=== PATIENT | male | born 1930 | race Caucasian/White ===

== ENCOUNTER → 2016-10-03 | Outpatient (CLI) | payer OTHER ==
[2016-10-03 09:43] LABS: Basophils # (auto) 0.1 uL; Basophils % (auto) 0.5 % (0.0-2.0); Eosinophils # (auto) 0.2 uL; Eosinophils % (auto) 2.1 % (0.0-7.0); Hematocrit 40.8 % (41.0-53.0); Hemoglobin 13.1 g/dL (13.5-17.5); Lymphocytes # (auto) 1.8 uL; Lymphocytes % (auto) 15.7 % (10.0-50.0); Mean Corpuscular Hemoglobin 30.7 pg (28.0-32.0); Mean Corpuscular Hgb Conc. 32.2 g/dL (32.0-36.0); Mean Corpuscular Volume 95.4 fL (80.0-100.0); Mean Platelet Volume 10.3 fL (7.4-10.4); Monocytes % (auto) 8.9 % (0.0-12.0); Neutrophils # (auto) 8.4 uL; Neutrophils % (auto) 72.8 % (37.0-80.0); Platelet Count (auto) 207 10^3/uL (140-450); Red Cell Distribution Width 15.7 % (11.6-16.0); Urine Bilirubin Negative (Negative); Urine Blood Negative /uL (Negative); Urine Color Yellow (Yellow); Urine Glucose Normal (Normal); Urine Ketone Negative (Negative); Urine Nitrite Negative (Negative); Urine RBC <1 /hpf (0 - 3); Urine Urobilinogen Normal (Negative); Urine pH 6.5 (5.0-8.0); White Blood Cell 11.6 10^3/uL (4.4-10.8)
[2016-10-03 10:08] LABS: Albumin 3.7 g/dL (3.4-5.0); BUN/Creatinine Ratio 19.1; Bilirubin, Total 0.6 mg/dL (0.2-1.0); Calcium 8.6 mg/dL (8.5-10.1); Total Protein 6.8 g/dL (6.4-8.2)
== END | disposition home or self-care (01) ==
LOC: LAB 08:44
PROVIDERS: ATTEND Family Medicine
DX: I48.91 Unspecified atrial fibrillation (principal); I10 Essential (primary) hypertension; I50.9 Heart failure, unspecified
CPT/HCPCS: 36415; 80053; 80061; 81001; 85025; 85049

== ENCOUNTER 2016-10-27 12:16 | Inpatient (IN) | payer OTHER ==
[~2016-10-27] VITALS: Ht 177.8 cm; Wt 78.6 kg
[2016-10-27] MEDS ORDERED: MORPHINE SULF INJ 2 MG/ML SYRINGE 1ML IV ONE (13:45)
[2016-10-27] MEDS ORDERED: cloNIDine HCL 0.1 MG TAB PO ONE (13:45)
[2016-10-27] MEDS ORDERED: ONDANSETRON HCL 4 MG/2 ML VIAL IV ONE (13:45)
[2016-10-27 13:52] LABS: Basophils # (auto) 0.1 uL; Basophils % (auto) 0.7 % (0.0-2.0); Eosinophils # (auto) 0.4 uL; Eosinophils % (auto) 4.7 % (0.0-7.0); Hematocrit 36.1 % (41.0-53.0); Hemoglobin 11.4 g/dL (13.5-17.5); Lymphocytes # (auto) 1.4 uL; Lymphocytes % (auto) 16.4 % (10.0-50.0); Mean Corpuscular Hemoglobin 30.1 pg (28.0-32.0); Mean Corpuscular Hgb Conc. 31.6 g/dL (32.0-36.0); Mean Corpuscular Volume 95.4 fL (80.0-100.0); Mean Platelet Volume 10.1 fL (7.4-10.4); Monocytes # (auto) 0.9 uL; Monocytes % (auto) 10.9 % (0.0-12.0); Neutrophils # (auto) 5.6 uL; Neutrophils % (auto) 67.3 % (37.0-80.0); Platelet Count (auto) 211 10^3/uL (140-450); Red Cell Distribution Width 15.3 % (11.6-16.0); White Blood Cell 8.3 10^3/uL (4.4-10.8)
[2016-10-27 14:08] LABS: Partial Thromboplastin Time 32.9 sec (22.64-33.71)
[2016-10-27 14:12] LABS: INR 1.29 (0.9-1.15); Prothrombin Time 13.3 sec (9.37-12.3)
[2016-10-27 14:17] LABS: Albumin 3.2 g/dL (3.4-5.0); BUN/Creatinine Ratio 16.6; Calcium 8.6 mg/dL (8.5-10.1)
[2016-10-27 14:23] LABS: Bilirubin, Total 0.6 mg/dL (0.2-1.0); Total Protein 6.3 g/dL (6.4-8.2)
[2016-10-27] MEDS ORDERED: ASPirin 81 mg TAB PO ONE ×2 (15:00→17:00)
[2016-10-27] MEDS ORDERED: cefTRIAXone 1GM/50ML D5W 50 ML IV ONE (15:00)
[2016-10-27 15:15] LABS: B-Type Natriuretic Peptide 858.09 pg/mL (0-100); Temperature: 22.4 C (20.0-25.0)
[2016-10-27] MEDS ORDERED: FUROSEMIDE 40 MG/4 ML VIAL IV ONE (16:00)
[2016-10-27] MEDS ORDERED: SODIUM CHLORIDE 0.9% 1,000 ML IV SCH (16:18)
[2016-10-27] MEDS ORDERED: HYDROcodone-ACET 5/325MG TAB PO PRN (16:30)
[2016-10-27] MEDS ORDERED: TEMAZEPAM 15 MG CAP PO PRN (16:30)
[2016-10-27] MEDS ORDERED: ALBUTEROL SULF 2.5 MG/0.5ML(0.5%) NEB SOLN NEB PRN (16:30)
[2016-10-27] MEDS ORDERED: MORPHINE SULF INJ 2 MG/ML SYRINGE 1ML IV PRN ×2 (16:30)
[2016-10-27] MEDS ORDERED: LACTULOSE 20Gm/30ML SOLN PO PRN (16:30)
[2016-10-27] MEDS ORDERED: NITROGLYCERIN 0.4 MG SL TAB SL PRN (16:30)
[2016-10-27] MEDS ORDERED: ACETAMINOPHEN 500 MG TAB PO PRN (16:30)
[2016-10-27] MEDS ORDERED: PROMETHAZINE HCL 25 MG/ML 1ML IV PRN (16:30)
[2016-10-27] MEDS ORDERED: LORazepam 0.5 MG TAB PO PRN (16:30)
[2016-10-27] MEDS ORDERED: OSELTAMIVIR 75 MG CAP PO ONE (16:30)
[2016-10-27] MEDS ORDERED: AZITHROMYCIN 500MG/D5W 250ML 250 ML IV ONE (17:00)
[2016-10-27] MEDS ORDERED: CARVEDILOL 3.125 MG TAB PO ONE (17:00)
[2016-10-27] MEDS ORDERED: ENALAPRIL MALEATE 2.5 MG TAB PO ONE (17:00)
[2016-10-27] MEDS ORDERED: ENOXAPARIN SOD 30 MG/0.3 ML SYRINGE SC ONE (17:00)
[2016-10-27] MEDS ORDERED: NITROGLYCERIN 0.2MG/HR TOPICAL PATCH TD ONE (17:00)
[2016-10-27] MEDS: ALBUTEROL SULF 2.5 MG/0.5ML(0.5%) NEB SOLN NEB SCH (20:44)
[2016-10-27] MEDS: IPRATROPIUM BROM 0.5 MG/2.5ML INH SOL NEB SCH (20:44)
[2016-10-27] MEDS: FUROSEMIDE 40 MG/4 ML VIAL IV SCH (21:20)
[2016-10-27] MEDS ORDERED: OSELTAMIVIR 75 MG CAP PO SCH (22:00)
[2016-10-27] MEDS: CARVEDILOL 3.125 MG TAB PO SCH (22:06)
[2016-10-27 22:30] VITALS: BP 101/63
[2016-10-27 22:38] VITALS: BP 105/53
[2016-10-28] MEDS ORDERED: DOCU-94 PO (01:18)
[2016-10-28] MEDS ORDERED: METO25TA5 PO (01:30)
[2016-10-28] MEDS ORDERED: SENN8.6C PO (01:30)
[2016-10-28] MEDS ORDERED: PANT40T PO (01:30)
[2016-10-28] MEDS ORDERED: TAMS0.4C36 PO (01:30)
[2016-10-28] MEDS ORDERED: APIX2.5T OR (01:30)
[2016-10-28] MEDS ORDERED: CINA30TA2 PO (01:30)
[2016-10-28] MEDS ORDERED: MAGN400T23 PO (01:30)
[2016-10-28] MEDS ORDERED: FURO40TA4 PO (01:30)
[2016-10-28] MEDS ORDERED: FIN5T GT (01:30)
[2016-10-28] MEDS ORDERED: ATOR20TA PO (01:30)
[2016-10-28] MEDS ORDERED: AMI200T GT (01:30)
[2016-10-28] MEDS: ALBUTEROL SULF 2.5 MG/0.5ML(0.5%) NEB SOLN NEB SCH ×4 (02:27→19:36)
[2016-10-28] MEDS: IPRATROPIUM BROM 0.5 MG/2.5ML INH SOL NEB SCH ×4 (02:27→19:37)
[2016-10-28 04:51] VITALS: BP 123/68
[2016-10-28 06:24] LABS: Basophils # (auto) 0.1 uL; Basophils % (auto) 0.7 % (0.0-2.0); Eosinophils # (auto) 0.5 uL; Eosinophils % (auto) 6.7 % (0.0-7.0); Hematocrit 35.5 % (41.0-53.0); Hemoglobin 11.1 g/dL (13.5-17.5); Lymphocytes # (auto) 1.7 uL; Lymphocytes % (auto) 21.5 % (10.0-50.0); Mean Corpuscular Hemoglobin 30.2 pg (28.0-32.0); Mean Corpuscular Hgb Conc. 31.3 g/dL (32.0-36.0); Mean Corpuscular Volume 96.5 fL (80.0-100.0); Monocytes # (auto) 0.8 uL; Monocytes % (auto) 10.5 % (0.0-12.0); Neutrophils # (auto) 4.7 uL; Neutrophils % (auto) 60.6 % (37.0-80.0); Platelet Count (auto) 212 10^3/uL (140-450); White Blood Cell 7.7 10^3/uL (4.4-10.8)
[2016-10-28] MEDS: FUROSEMIDE 40 MG/4 ML VIAL IV SCH ×2 (06:56→17:43)
[2016-10-28 06:58] LABS: B-Type Natriuretic Peptide 792.71 pg/mL (0-100); Temperature: 21.4 C (20.0-25.0)
[2016-10-28 07:50] LABS: Albumin 2.7 g/dL (3.4-5.0); BUN/Creatinine Ratio 16.7; Bilirubin, Total 0.3 mg/dL (0.2-1.0); Calcium 8.3 mg/dL (8.5-10.1); Potassium 3.8 mmol/L (3.5-5.1); Total Protein 5.6 g/dL (6.4-8.2)
[2016-10-28] MEDS: cefTRIAXone 1GM/50ML D5W 50 ML IV SCH (09:22)
[2016-10-28 09:36] VITALS: BP 114/57
[2016-10-28] MEDS ORDERED: AZITHROMYCIN 500MG/D5W 250ML 250 ML IV SCH (10:00)
[2016-10-28] MEDS ORDERED: ENOXAPARIN SOD 40 MG/0.4 ML SYRINGE SC SCH (10:00)
[2016-10-28] MEDS: ASPirin 81 mg TAB PO SCH (10:21)
[2016-10-28] MEDS: CARVEDILOL 3.125 MG TAB PO SCH ×2 (10:21→21:41)
[2016-10-28] MEDS: ENALAPRIL MALEATE 2.5 MG TAB PO SCH (10:21)
[2016-10-28] MEDS: ENOXAPARIN SOD 30 MG/0.3 ML SYRINGE SC SCH (10:22)
[2016-10-28] MEDS: NITROGLYCERIN 0.2MG/HR TOPICAL PATCH TD SCH (10:33)
[2016-10-28 13:46] VITALS: BP 125/73
[2016-10-28] MEDS ORDERED: DOXYCYCLINE HYC 100MG/250ML 250 ML IV SCH (15:00)
[2016-10-28] MEDS: DOXYCYCLINE HYC 100MG/250ML 250 ML IV SCH ×2 (16:18→21:41)
[2016-10-28 17:17] VITALS: BP 122/78
[2016-10-28] MEDS: BOOST PLUS 8 ounce PO SCH ×2 (18:17→21:41)
[2016-10-28] MEDS ORDERED: PNEUMOCOCCAL VACC POLYS 25 MCG/0.5 ML VIAL IM ONE (19:30)
[2016-10-28] MEDS ORDERED: INFLUENZA QUAD 2016-2017 0.5 ML SYRG IM ONE (19:30)
[2016-10-28 22:03] VITALS: BP 117/62
[2016-10-29] MEDS: ALBUTEROL SULF 2.5 MG/0.5ML(0.5%) NEB SOLN NEB SCH ×4 (00:38→18:59)
[2016-10-29] MEDS: IPRATROPIUM BROM 0.5 MG/2.5ML INH SOL NEB SCH ×4 (00:38→18:59)
[2016-10-29 05:30] VITALS: BP 108/59
[2016-10-29] MEDS: FUROSEMIDE 40 MG/4 ML VIAL IV SCH ×2 (05:40→17:28)
[2016-10-29] MEDS: BOOST PLUS 8 ounce PO SCH ×4 (05:40→21:13)
[2016-10-29 06:11] LABS: Basophils # (auto) 0.1 uL; Basophils % (auto) 0.5 % (0.0-2.0); Eosinophils # (auto) 0.4 uL; Eosinophils % (auto) 4.2 % (0.0-7.0); Hematocrit 34.3 % (41.0-53.0); Hemoglobin 10.9 g/dL (13.5-17.5); Lymphocytes # (auto) 1.6 uL; Lymphocytes % (auto) 15.5 % (10.0-50.0); Mean Corpuscular Hemoglobin 30.4 pg (28.0-32.0); Mean Corpuscular Hgb Conc. 31.7 g/dL (32.0-36.0); Mean Corpuscular Volume 95.9 fL (80.0-100.0); Mean Platelet Volume 10.1 fL (7.4-10.4); Monocytes # (auto) 1.1 uL; Neutrophils % (auto) 68.8 % (37.0-80.0); Platelet Count (auto) 232 10^3/uL (140-450); Red Cell Distribution Width 14.9 % (11.6-16.0); White Blood Cell 10.2 10^3/uL (4.4-10.8)
[2016-10-29 06:23] LABS: Albumin 2.6 g/dL (3.4-5.0); Calcium 8.2 mg/dL (8.5-10.1); Potassium 3.8 mmol/L (3.5-5.1)
[2016-10-29 07:03] LABS: BUN/Creatinine Ratio 18.9
[2016-10-29 07:05] LABS: Bilirubin, Total 0.3 mg/dL (0.2-1.0); Total Protein 5.2 g/dL (6.4-8.2)
[2016-10-29 08:00] VITALS: BP 128/62
[2016-10-29] MEDS: cefTRIAXone 1GM/50ML D5W 50 ML IV SCH (10:15)
[2016-10-29] MEDS: NITROGLYCERIN 0.2MG/HR TOPICAL PATCH TD SCH (10:16)
[2016-10-29] MEDS: ENALAPRIL MALEATE 2.5 MG TAB PO SCH (10:17)
[2016-10-29] MEDS: ASPirin 81 mg TAB PO SCH (10:17)
[2016-10-29] MEDS: CARVEDILOL 3.125 MG TAB PO SCH ×2 (10:17→21:13)
[2016-10-29] MEDS: DOXYCYCLINE HYC 100MG/250ML 250 ML IV SCH (10:31)
[2016-10-29] MEDS: ENOXAPARIN SOD 30 MG/0.3 ML SYRINGE SC SCH (10:31)
[2016-10-29 12:00] VITALS: BP 121/60
[2016-10-29 17:00] VITALS: BP 122/67
[2016-10-29] MEDS: DOXYCYCLINE 100 MG TAB/CAP PO SCH (21:14)
[2016-10-29 21:43] VITALS: BP 145/78
[2016-10-30] VITALS (8 sets, daily range): BP systolic 116–144; BP diastolic 63–89
[2016-10-30] MEDS: IPRATROPIUM BROM 0.5 MG/2.5ML INH SOL NEB SCH ×4 (00:23→18:58)
[2016-10-30] MEDS: ALBUTEROL SULF 2.5 MG/0.5ML(0.5%) NEB SOLN NEB SCH ×4 (00:23→18:58)
[2016-10-30] MEDS: FUROSEMIDE 40 MG/4 ML VIAL IV SCH ×2 (05:23→18:03)
[2016-10-30] MEDS: cefTRIAXone 1GM/50ML D5W 50 ML IV SCH (05:24)
[2016-10-30] MEDS: BOOST PLUS 8 ounce PO SCH ×4 (05:58→22:32)
[2016-10-30 06:10] LABS: Basophils # (auto) 0 uL; Basophils % (auto) 0.4 % (0.0-2.0); Eosinophils # (auto) 0.6 uL; Eosinophils % (auto) 4.7 % (0.0-7.0); Hematocrit 33.7 % (41.0-53.0); Hemoglobin 11.2 g/dL (13.5-17.5); Lymphocytes # (auto) 1.3 uL; Lymphocytes % (auto) 10.8 % (10.0-50.0); Mean Corpuscular Hemoglobin 31.6 pg (28.0-32.0); Mean Corpuscular Hgb Conc. 33.3 g/dL (32.0-36.0); Mean Platelet Volume 10.3 fL (7.4-10.4); Monocytes # (auto) 1.5 uL; Neutrophils # (auto) 8.4 uL; Neutrophils % (auto) 71.1 % (37.0-80.0); Platelet Count (auto) 242 10^3/uL (140-450); White Blood Cell 11.8 10^3/uL (4.4-10.8)
[2016-10-30 07:00] LABS: Albumin 2.7 g/dL (3.4-5.0); Bilirubin, Total 0.2 mg/dL (0.2-1.0); Calcium 8.4 mg/dL (8.5-10.1); Potassium 3.7 mmol/L (3.5-5.1); Total Protein 5.5 g/dL (6.4-8.2)
[2016-10-30] MEDS: ENOXAPARIN SOD 30 MG/0.3 ML SYRINGE SC SCH (09:18)
[2016-10-30] MEDS: DOXYCYCLINE 100 MG TAB/CAP PO SCH (09:18)
[2016-10-30] MEDS: NITROGLYCERIN 0.2MG/HR TOPICAL PATCH TD SCH (09:19)
[2016-10-30] MEDS: ASPirin 81 mg TAB PO SCH (09:19)
[2016-10-30] MEDS: CARVEDILOL 3.125 MG TAB PO SCH ×2 (09:20→22:33)
[2016-10-30] MEDS: ENALAPRIL MALEATE 2.5 MG TAB PO SCH (09:20)
[2016-10-30] MEDS ORDERED: LEVOFLOXACIN 250MG 50 ML IV SCH (21:00)
[2016-10-31] MEDS: ALBUTEROL SULF 2.5 MG/0.5ML(0.5%) NEB SOLN NEB SCH ×3 (00:24→14:27)
[2016-10-31] MEDS: IPRATROPIUM BROM 0.5 MG/2.5ML INH SOL NEB SCH ×3 (00:24→14:27)
[2016-10-31 05:32] VITALS: BP 107/68
[2016-10-31] MEDS: BOOST PLUS 8 ounce PO SCH ×3 (06:03→17:22)
[2016-10-31 06:27] LABS: Basophils # (auto) 0 uL; Basophils % (auto) 0.3 % (0.0-2.0); Eosinophils # (auto) 0.4 uL; Eosinophils % (auto) 3.7 % (0.0-7.0); Hematocrit 35.2 % (41.0-53.0); Hemoglobin 11.8 g/dL (13.5-17.5); Lymphocytes # (auto) 1.4 uL; Lymphocytes % (auto) 11.9 % (10.0-50.0); Mean Corpuscular Hemoglobin 31.6 pg (28.0-32.0); Mean Corpuscular Hgb Conc. 33.5 g/dL (32.0-36.0); Mean Corpuscular Volume 94.2 fL (80.0-100.0); Monocytes # (auto) 1.6 uL; Monocytes % (auto) 12.8 % (0.0-12.0); Neutrophils # (auto) 8.6 uL; Neutrophils % (auto) 71.3 % (37.0-80.0); Platelet Count (auto) 248 10^3/uL (140-450); Red Cell Distribution Width 14.9 % (11.6-16.0); White Blood Cell 12.1 10^3/uL (4.4-10.8)
[2016-10-31 06:53] LABS: Albumin 2.6 g/dL (3.4-5.0); BUN/Creatinine Ratio 22.9; Magnesium 1.9 mg/dL (1.6-2.6); Phosphorus 3.3 mg/dL (2.5-4.90)
[2016-10-31 07:44] LABS: Bilirubin, Total 0.3 mg/dL (0.2-1.0); Potassium 3.8 mmol/L (3.5-5.1); Total Protein 5.8 g/dL (6.4-8.2)
[2016-10-31 08:00] VITALS: BP 135/79
[2016-10-31 09:00] VITALS: BP 135/79
[2016-10-31] MEDS: ENOXAPARIN SOD 30 MG/0.3 ML SYRINGE SC SCH (09:11)
[2016-10-31] MEDS: ASPirin 81 mg TAB PO SCH (09:11)
[2016-10-31] MEDS: ENALAPRIL MALEATE 2.5 MG TAB PO SCH (09:11)
[2016-10-31] MEDS: NITROGLYCERIN 0.2MG/HR TOPICAL PATCH TD SCH (09:12)
[2016-10-31] MEDS: CARVEDILOL 3.125 MG TAB PO SCH (09:12)
[2016-10-31] MEDS ORDERED: FUROSEMIDE 20 MG/2 ML VIAL IV SCH (10:00)
[2016-10-31] MEDS ORDERED: BISACODYL 10 MG RECT SUPP PR ONE (12:45)
[2016-10-31] MEDS ORDERED: LEVO250T45 PO (15:28)
[2016-10-31] MEDS ORDERED: BISA10SU45 RE (15:28)
[2016-10-31] MEDS ORDERED: ALBU1AER4 IN (15:43)
[2016-10-31 15:44] VITALS: BP 132/71
[2016-10-31 16:54] VITALS: BP 140/76
[2016-10-31 17:00] VITALS: BP 139/67
== END 2016-10-31 17:34 | disposition home or self-care (01) | DRG 280 ==
LOC: EDBD 12:16 → ER 12:19 → TELE 12:20 → TELE-WESTW 22:10
PROVIDERS: ADMIT Internal Medicine; ATTEND Internal Medicine
DX: I21.4 Non-ST elevation (NSTEMI) myocardial infarction (principal); E43 Unspecified severe protein-calorie malnutrition; I50.43 Acute on chronic combined systolic (congestive) and diastolic (congestive) heart failure; J69.0 Pneumonitis due to inhalation of food and vomit; G93.40 Encephalopathy, unspecified; I13.0 Hypertensive heart and chronic kidney disease with heart failure and stage 1 through stage 4 chronic kidney disease, or unspecified chronic kidney disease; D68.59 Other primary thrombophilia; N18.3 Chronic kidney disease, stage 3 (moderate); M10.9 Gout, unspecified; F02.80 Dementia in other diseases classified elsewhere, unspecified severity, without behavioral disturbance, psychotic disturbance, mood disturbance, and anxiety; E78.5 Hyperlipidemia, unspecified; I48.2 Chronic atrial fibrillation; H91.90 Unspecified hearing loss, unspecified ear; D50.9 Iron deficiency anemia, unspecified; G30.9 Alzheimer's disease, unspecified; K21.9 Gastro-esophageal reflux disease without esophagitis; M19.90 Unspecified osteoarthritis, unspecified site; Z98.49 Cataract extraction status, unspecified eye; Z79.899 Other long term (current) drug therapy; Z23 Encounter for immunization; Z68.24 Body mass index [BMI] 24.0-24.9, adult
CPT/HCPCS: 36415; 70450; 70551; 71010; 71020; 80053; 80061; 82550; 82607; 82746; 83735; 83880; 84100; 84443; 84484; 85025; 85379; 85610; 85652; 85730; 87040; 87070; 87081; 87205; 87400; 92610; 93005; 93306; 93886; 94640; 95819; 96365; 96367; 96372; 96375; 97001; 97110; 97116; 97530; 99291; J0696; J2405; J3490

== ENCOUNTER → 2018-02-18 | Outpatient (CLI) | payer OTHER ==
[~2018-02-18] MED LIST: ALBU1AER4 IN; AMI200T GT; APIX2.5T OR; BISA10SU45 RE; CINA30TA2 PO; DOCU-94 PO; FIN5T GT; FURO40TA4 PO; LEVO250T45 PO; MAGN400T23 PO; METO25TA5 PO; PANT40T PO; SENN8.6C PO; TAMS0.4C36 PO
[2018-02-18 10:45] LABS: Basophils # (auto) 0.1 uL; Basophils % (auto) 0.8 % (0.0-2.0); Eosinophils # (auto) 0.3 uL; Eosinophils % (auto) 3.3 % (0.0-7.0); Hematocrit 39.3 % (41.0-53.0); Hemoglobin 12.7 g/dL (13.5-17.5); Lymphocytes # (auto) 1.7 uL; Lymphocytes % (auto) 18.1 % (10.0-50.0); Mean Corpuscular Hemoglobin 30.9 pg (28.0-32.0); Mean Corpuscular Hgb Conc. 32.2 g/dL (32.0-36.0); Mean Corpuscular Volume 95.8 fL (80.0-100.0); Monocytes % (auto) 10.9 % (0.0-12.0); Neutrophils # (auto) 6.2 uL; Neutrophils % (auto) 66.9 % (37.0-80.0); Platelet Count (auto) 222 10^3/uL (140-450); Red Cell Distribution Width 14.1 % (11.8-14.3); White Blood Cell 9.2 10^3/uL (4.4-10.8)
[2018-02-18 10:52] LABS: Urine Bacteria NONE SEEN /hpf (None Seen); Urine Blood Negative /uL (Negative); Urine Specific Gravity 1.013 (1.001-1.035); Urine WBC 1 /hpf (0 - 3)
[2018-02-18 12:06] LABS: Albumin 3.5 g/dL (3.4-5.0); BUN/Creatinine Ratio 24.7; Bilirubin, Total 0.6 mg/dL (0.2-1.0); Calcium 8.4 mg/dL (8.5-10.1); Potassium 4.1 mmol/L (3.5-5.1); Total Protein 7.1 g/dL (6.4-8.2)
== END | disposition home or self-care (01) ==
LOC: LAB 09:59
PROVIDERS: ATTEND Family Medicine
DX: I11.0 Hypertensive heart disease with heart failure (principal); I50.9 Heart failure, unspecified; I25.10 Atherosclerotic heart disease of native coronary artery without angina pectoris; Z79.899 Other long term (current) drug therapy
CPT/HCPCS: 36415; 80053; 80061; 81001; 85025

== ENCOUNTER 2018-03-07 18:26 | Emergency (ER) | payer OTHER ==
[~2018-03-07] VITALS: Ht 185.4 cm; Wt 68.9 kg
[2018-03-07] MEDS ORDERED: MORPHINE SULF INJ 2 MG/ML SYRINGE 1ML IV ONE (18:45)
[2018-03-07] MEDS ORDERED: ONDANSETRON HCL 4 MG/2 ML VIAL IV ONE (18:45)
[2018-03-07 19:25] LABS: Basophils # (auto) 0.1 uL; Basophils % (auto) 0.7 % (0.0-2.0); Eosinophils # (auto) 0.3 uL; Eosinophils % (auto) 2.3 % (0.0-7.0); Hematocrit 39.6 % (41.0-53.0); Lymphocytes # (auto) 1.8 uL; Lymphocytes % (auto) 15.2 % (10.0-50.0); Mean Corpuscular Hemoglobin 31.1 pg (28.0-32.0); Mean Corpuscular Hgb Conc. 32.9 g/dL (32.0-36.0); Mean Corpuscular Volume 94.6 fL (80.0-100.0); Monocytes # (auto) 1.3 uL; Monocytes % (auto) 11.4 % (0.0-12.0); Neutrophils # (auto) 8.2 uL; Neutrophils % (auto) 70.4 % (37.0-80.0); Platelet Count (auto) 217 10^3/uL (140-450); Red Blood Cells 4.19 10^6/uL (4.5-5.90); Red Cell Distribution Width 14.4 % (11.8-14.3); White Blood Cell 11.7 10^3/uL (4.4-10.8)
[2018-03-07 19:44] LABS: Albumin 3.4 g/dL (3.4-5.0); BUN/Creatinine Ratio 21.1; Calcium 8.2 mg/dL (8.5-10.1); Magnesium 2.2 mg/dL (1.6-2.6)
[2018-03-07 19:47] LABS: Bilirubin, Total 0.4 mg/dL (0.2-1.0); Total Protein 6.8 g/dL (6.4-8.2)
[2018-03-07 21:00] VITALS: BP 146/89
== END 2018-03-07 21:26 | disposition home or self-care (01) ==
LOC: ER 18:26
DX: M25.552 Pain in left hip (principal); I48.91 Unspecified atrial fibrillation; I13.0 Hypertensive heart and chronic kidney disease with heart failure and stage 1 through stage 4 chronic kidney disease, or unspecified chronic kidney disease; N18.9 Chronic kidney disease, unspecified; K21.9 Gastro-esophageal reflux disease without esophagitis; E78.5 Hyperlipidemia, unspecified
CPT/HCPCS: 36415; 73700; 80053; 83735; 85025; 94761; 96374; 96375; 99285; J2270; J2405